=== PATIENT | male | born 1985 | race Caucasian/White ===

== ENCOUNTER 2020-11-15 09:49 | Emergency (ER) | payer BC, SELFPAY ==
[2020-11-15 10:05] VITALS: BP 124/86; PULSE 92; RESP 21; TEMP 37; O2SAT 99; BMI 34.4
--- NOTE | 2020-11-15 10:34 | HMH.EDUTC ---
[facility] [place] Clinical Impression: COVID-19 virus test result unknown, Upper respiratory infection, viral Disposition: Home, Self-Care Condition on Discharge: Good Instructions: DI for Viral Upper Respiratory Infection -- Adult, DI for COVID-19 (Suspected or Confirmed ), Preventing the Spread of Coronavirus Discharge Instructions Additional Instructions: covid swab was sent to lab, call later today for results. self isolate until test results are known to be negative No sign of a bacterial infection. Likely viral. Viruses can take 7-14 days to run their course. Nasal saline and bulb syringe or nose Love to remove nasal drainage to help with nasal congestion. Hard to eat, drink, sleep with nasal congestion so important to keep this cleaned out. Monitor temp. Tylenol or Motrin as needed for pain or fever Encourage fluids, water, Gatorade, Powerade, Pedialyte if infant/toddler/child Warm salt water gargles Warm fluids Sore throat lozenges Sleep elevated Humidifier/vaporizer Follow-up immediately for new or worsening symptoms or no noticeable improvement over the next 48-72 hours. Referrals: Josse Daniel [Primary Care Provider] - Time of Disposition: 10:39 Medical Decision Making - Damion Inquiry Pt receiving controlled substance: No Vital Signs: 11/15/20 10:05 Temperature 98.6 F Temperature Source Oral Pulse Rate [Right Brachial] 92 H Respiratory Rate 21 Blood Pressure [Right Arm] 124/86 Blood Pressure Mean [Right Arm] 98 Blood Pressure Source [Right Arm] Automatic Cuff Blood Pressure Position [Right Arm] Sitting 02 Sat by Pulse Oximetry 99 Oxygen Delivery Method Room Air Orders (Tests/Meds): ORDERS Category Date Time Status Covid-19 Nasal PCR ([facility]) Routine Lab 11/15/20 09:51 Ordered [facility] [place] - General Chief complaint: [facility] Stated complaint: covid exposure test Time Seen by Provider: 11/15/20 10:34 Mode of Arrival: Ambulatory Source of Information: Patient Limitations: No Limitations Description of Symptoms (Recalled from Triage Doc. by RN): COVID TEST D/T EXPOSURE. C/O DRY COUGH, CONGESTION, AND BODY ACHES SINCE THIS MORNING. HEENT Symptoms (Recalled from RN notes): Yes Resp Symptoms (Recalled from RN notes): Yes Skin Symptoms (Recalled from RN notes): No MS Symptoms (Recalled from RN notes): No Functional Status (Recalled from RN notes): WNL - History of Present Illness Provider Complaint: 35 yr old male presents for dry cough, nasal congestion,runny nose, and tiredness that started today. has been exposed to covid - Related Data Previous Rx's Medication Instructions Recorded Amoxicillin/Potassium Clav 1 tab PO Q12H 10 Days #20 tab 05/20/19 [Augmentin 875-125 Tablet] Brompheniramine/Pseudoephed/Dm 5 - 10 ml PO Q4HP PRN 10 Days #240 05/20/19 [Bromfed DM Cough Syrup 5mL] ml Allergies Allergy/AdvReac Type Severity Reaction Status Date / Time No Known Allergies Allergy Verified 01/30/18 10:39 - Worker's Comp Is this a Worker's Comp case?: No [facility] History - Hepatitis A Screen Drug use history?: No High risk sexual behaviors?: No History of sexually transmitted infection?: No Currently employed?: No Childcare worker?: No Do you have indoor plumbing?: Yes Do you have electricity?: Yes Attestation statement:: This patient has been screened for Hepatitis A risk factors. I have reviewed the patient's past medical history: Yes Other Surgeries: Yes: No Previous Surgery Amputation: No Fractures: No - Social History Smoking Status: Never smoker Alcohol Intake: never Substance Use Type: denies use Occupational Status: employed Housing: house Household Members: spouse Family Hx:: No significant family history ROS Obtained: Yes All systems reviewed & no additional complaints - Constitutional Constitutional: Reports system reviewed and no additional complaints, except as docu, Reports body ache, Reports fatigue, Denies fever(s) - Eye
[2020-11-15 10:45] VITALS: BP 124/86; PULSE 92; RESP 21; TEMP 37; O2SAT 99
== END 2020-11-15 10:50 | disposition home or self-care (01) ==
PROVIDERS: Emergency Provider Nurse Practitioner Family; PCP Pediatrics
DX: U07.1 COVID-19 (principal)
CPT/HCPCS: 99202; G0463; U0003

== ENCOUNTER 2020-11-24 18:58 | Emergency (ER) | payer BC, SELFPAY ==
[2020-11-24 19:01] VITALS: BP 151/107; PULSE 92; RESP 19; TEMP 37.1; O2SAT 98; BMI 35.5
--- NOTE | 2020-11-24 19:56 | CT_ITS ---
PROCEDURE INFORMATION: Exam: CTA Chest With Contrast Exam date and time: 11/24/2020 7:56 PM Age: 35 years old Clinical indication: Cough and shortness of breath; Patient HX: SOA, cough, congestion, covid positive; Additional info: SOB, covid + TECHNIQUE: Imaging protocol: Computed tomographic angiography of the chest with contrast. 3D rendering (Not supervised by radiologist): MIP and/or 3D reconstructed images were created by the technologist. Radiation optimization: All CT scans at this facility use at least one of these dose optimization techniques: automated exposure control; mA and/or kV adjustment per patient size (includes targeted exams where dose is matched to clinical indication); or iterative reconstruction. Contrast material: ISO 370; Contrast volume: 70 ml; Contrast route: INTRAVENOUS (IV); COMPARISON: CR XR CHEST 2V 11/24/2020 8:30 PM FINDINGS: Pulmonary arteries: Bolus timing is insufficient for definitive exclusion of pulmonary emboli. Study was performed in the aortic phase of enhancement. Grossly, no large pulmonary emboli are appreciated within the main pulmonary arteries. Proximal through distal segmental/subsegmental branches are not confidently evaluated. Pulmonary arteries are otherwise normal in course and caliber. Aorta: Normal aorta. Lungs: Ground-glass and patchy airspace opacities in the right upper lobe, right lower lobe, left lower lobe, and left upper lobe. Remainder of the lungs are clear. The airways are patent. Pleural spaces: Unremarkable. No pneumothorax. No pleural effusion. Heart: Unremarkable. No cardiomegaly. No pericardial effusion. Lymph nodes: Unremarkable. No enlarged lymph nodes. Bones/joints: Unremarkable. No acute fracture. Soft tissues: Unremarkable. IMPRESSION: 1. Bolus timing is insufficient for definitive exclusion of pulmonary emboli. Study was performed in the aortic phase of enhancement. Grossly, no large pulmonary emboli are appreciated within the main pulmonary arteries. Proximal through distal segmental/subsegmental branches are not confidently evaluated. 2. Mild scattered and bilateral acute airspace disease, most compatible with mild/early COVID-19 pneumonia in this patient with a positive history.
--- NOTE | 2020-11-24 19:56 | XR_ITS ---
PROCEDURE INFORMATION: Exam: XR Chest Exam date and time: 11/24/2020 7:56 PM Age: 35 years old Clinical indication: Cough and shortness of breath; Patient HX: SOA, cough, congestion, covid positve; Additional info: SOB, covid + TECHNIQUE: Imaging protocol: XR of the chest. Views: 2 views. COMPARISON: CR CXR1 CHEST-PORTABLE 08/20/2015 4:32 PM FINDINGS: Airway: Patent Lungs: Subtle ground-glass opacifications suggested at the bilateral lung bases and right upper lung. Pleural spaces: Unremarkable. No pleural effusion. No pneumothorax. Heart/Mediastinum: Unremarkable. No cardiomegaly. Bones/joints: No acute skeletal abnormality or aggressive osseous lesion. IMPRESSION: Concern for early/developing airspace disease in the bilateral lung bases and right upper lung. Developing atypical pneumonia should be entertained in the appropriate clinical setting.
--- NOTE | 2020-11-24 20:12 | HMH.EDSOB ---
ED Disposition Clinical Impression: COVID-19 with pulmonary comorbidity, Obesity (BMI 30-39.9) Disposition: Home, Self-Care Condition on Discharge: Good Instructions: DI for COVID-19 (Suspected or Confirmed ) Additional Instructions: will refer for infusion regen-rivas and call pcp for follow up Referrals: Josse Daniel [Primary Care Provider] - - Critical Care Critical Care Time: No Attestation: On 11/24/20, the high probability of a clinically significant, sudden or life threatening deterioration of the following system(s) required my full and direct attention, intervention and personal management. The time I documented below is in addition to time spent performing reported procedures but includes the following listed in this critical care notation. Medical Decision Making - Medical Records Medical records reviewed: Yes: I reviewed the patient's medical records. - Damion Inquiry Pt receiving controlled substance: No Vital Signs: 11/24/20 19:01 Temperature 98.7 F Temperature Source Oral Pulse Rate [Right] 92 H Respiratory Rate 19 Blood Pressure [Right Arm] 151/107 H Blood Pressure Mean [Right Arm] 121 Blood Pressure Source [Right Arm] Automatic Cuff 02 Sat by Pulse Oximetry 98 Oxygen Delivery Method Room Air - Lab Data Lab results reviewed: Yes: I reviewed the patient's lab results. Lab Results 11/24/20 20:00: WBC 7.0, RBC 5.67, Hgb 16.7, Hct 50.6, MCV 89.2, MCH 29.4, MCHC 32.9, RDW 12.8, Plt Count 329, MPV 6.8 L, Neut % (Auto) 51.2, Lymph % (Auto) 40.0, Toole % (Auto) 5.3, Eos % (Auto) 3.1, Baso % (Auto) 0.5, Neut # (Auto) 3.6, Lymph # (Auto) 2.8, Toole # (Auto) 0.4, Eos # (Auto) 0.2, Baso # (Auto) 0.0, ESR 13 11/24/20 20:00: Sodium 141, Potassium 4.5, Chloride 102, Carbon Dioxide 30, Anion Gap 13.5, BUN 13, Creatinine 0.80, Estimated Creat Clear 215, Estimated GFR 111, Est GFR ( Amer) 135, Glucose 94, Calcium 9.0, Total Bilirubin 0.4, AST 49, ALT 61, Alkaline Phosphatase 84, Troponin I < 0.01, C-Reactive Protein 3.3, Total Protein 7.9, Albumin 4.4, Globulin 3.5 H, Albumin/Globulin Ratio 1.3, Procalcitonin 0.048 Result diagrams: 11/24/20 20:00 11/24/20 20:00 Orders (Tests/Meds): ED MEDICATIONS Generic Name Dose Route Start Last Admin Trade Name Freq PRN Reason Stop Dose Admin Sodium Chloride 1,000 mls @ 999 mls/hr 11/24/20 20:00 11/24/20 21:11 Sod Chlor 0.9% 1000ml Bag IV 11/24/20 21:00 999 mls/hr .Q1H1M CARY Administration Discontinued Medications Generic Name Dose Route Start Last Admin Trade Name Freq PRN Reason Stop Dose Admin Dexamethasone Sodium Phosphate 10 mg 11/24/20 19:56 11/24/20 21:11 Dexamethasone 4mg/Ml 5ml Mdv IV 11/24/20 19:57 10 mg ONCE ONE Administration Iopamidol 70 ml 11/24/20 20:55 11/24/20 20:56 Iopamidol-370 (76%);100ml Bottle IV 11/24/20 20:56 70 ml ONCE ONE Administration Sodium Chloride 50 ml 11/24/20 20:55 11/24/20 20:56 0.9 % Sodium Chloride 50 Ml Vial IV 11/24/20 20:56 50 ml ONCE ONE Administration Sodium Chloride 10 ml 11/24/20 20:55 11/24/20 20:56 Sodium Chloride 0.9% 10ml Syr (Rad Only) IV 11/24/20 20:56 10 ml ONCE ONE Administration ORDERS Category Date Time Status Troponin I Q3H Lab 11/24/20 23:00 Ordered Troponin I Q3H Lab 11/25/20 02:00 Ordered - Radiology Data #1 Image(s): Chest Image Reviewed: Yes I have reviewed radiologist's interpretation Preliminary Findings: Abnormal - CT Data CT Scan: Chest Time Received: 21:[address] Reviewed: Yes: I have viewed the radiologist's interpretation Preliminary Findings: Abnormal (no gross pul emboli) Medical Decision Narrative: has covid-19 with stable exam and labs and xrays at this time will refer for regen-cov infusion and call pcp Resp/SOB HPI - General Chief Complaint: Shortness of Breath/Dyspnea Stated Complaint: Covid+SOB congestion Time Seen by Provider: 11/24/20 20:00 Mode of Arrival: Ambulatory Source
[2020-11-24 20:20] LABS: Basophils % 0.5 % (0.1-2.0); Eosinophils # 0.2 K/mm3 (0.0-0.4); Eosinophils % 3.1 % (0.1-12.0); Hematocrit 50.6 % (42.0-52.0); Hemoglobin 16.7 g/dL (14.1-18.0); Lymphocytes # 2.8 K/mm3 (0.7-4.5); Mean Corpuscular HGB Conc 32.9 g/dL (31.8-35.4); Mean Corpuscular Hemoglobin 29.4 pg (27.0-31.2); Mean Corpuscular Volume 89.2 fl (80-94); Mean Platelet Volume 6.8 fl (7.4-10.4); Monocytes # 0.4 K/mm3 (0.1-1.0); Monocytes % 5.3 % (1.7-9.3); Neutrophils # 3.6 K/mm3 (1.8-7.8); Neutrophils % 51.2 % (37.0-80.0); Platelet Count 329 K/mm3 (142-424); Red Blood Count 5.67 M/mm3 (4.60-6.20); Red Cell Distribution Width 12.8 % (11.5-17.5)
[2020-11-24 20:23] LABS: Alanine Aminotransferase 61 U/L (12-78); Albumin Level 4.4 g/dl (3.5-5.0); Albumin/Globulin Ratio 1.3 (1.1-1.8); Alkaline Phosphatase 84 U/L (38-126); Anion Gap 13.5 mEq/L (5-15); Aspartate Amino Transferase 49 U/L (17-59); Bilirubin,Total 0.4 mg/dl (0.2-1.3); Blood Urea Nitrogen 13 mg/dl (9-20); Carbon Dioxide 30 mmol/L (22.0-30.0); Chloride 102 mmol/L (98-107); Creatinine Clearance Estimated 215 mL/min (50-200); Estimated Glomerular Filt Rate 111 ml/min (>60); GFR (African American) 135 ML/MIN (>60); Globulin 3.5 g/dL (1.3-3.2); Glucose 94 mg/dl (74-100); Potassium 4.5 mmoL/L (3.5-5.1); Sodium 141 mmol/L (136-145); Total Protein,Serum 7.9 g/dl (6.3-8.2)
[2020-11-24 20:28] LABS: C-Reactive Protein 3.3 mg/L (0-4)
[2020-11-24 20:42] LABS: Procalcitonin 0.048 ng/mL (0.0-2.0)
[2020-11-24 20:44] LABS: Troponin I < 0.01 ng/ml (0.00-0.034)
[2020-11-24 20:55] LABS: Erythrocyte Sedimentation Rate 13 mm/hr (0-15)
[2020-11-24 21:00] VITALS: BP 130/85; PULSE 86; O2SAT 95
[2020-11-24 21:30] VITALS: BP 118/81; PULSE 85; O2SAT 95
[2020-11-24 21:54] VITALS: BP 138/82; PULSE 74; RESP 18; TEMP 36.8; O2SAT 99
== END 2020-11-24 22:02 | disposition home or self-care (01) ==
PROVIDERS: Emergency Provider Emergency Medicine; PCP Pediatrics
DX: U07.1 COVID-19 (principal); R53.1 Weakness; R06.02 Shortness of breath
CPT/HCPCS: 71046; 71275; 80053; 84145; 84484; 85025; 85651; 86140; 93005; 96365; 96375; 99282; Q9967

== ENCOUNTER 2021-04-08 19:17 | Emergency (ER) | payer BC, SELFPAY ==
[2021-04-08 20:00] VITALS: BP 162/98; PULSE 124; RESP 20; TEMP 38.4; O2SAT 98; BMI 37.3
--- NOTE | 2021-04-08 20:17 | HMH.EDUTC ---
[facility] [place]: Viral syndrome Fever Qualifiers: Fever type: unspecified Qualified Code(s): R50.9 - Fever, unspecified Disposition: Home, Self-Care Condition on Discharge: Good Instructions: DI for Fever (Symptom) -- Adult, DI for COVID-19 (Suspected or Confirmed ), Preventing the Spread of Coronavirus Discharge Instructions Additional Instructions: *Monitor Temp, Over the counter Motrin or Tylenol as directed/as needed Tylenol every 4 hours and Motrin every 6 hours (as long as your family doctor has told you that you can take it) for fever or pain. and straight to ER if unable to lower temp less than 101.0 after medication given *Warm salt water gargles may help to soothe the throat *Throat Lozenges *Warm fluids like tea with honey may help to soothe the throat *Sleep elevated *Humidifier/Vaporizer Follow up IMMEDIATELY for new or worsening symptoms or no Noticeable improvement over the next 48-72 hours. 911 for difficulty breathing or swallowing You were tested for today for COVID19 your test result should be back in the next 48-72 hours, you may check your results on the [facility] My health portal If you are positive someone from the Hospital will be calling you Make sure to drink plenty of water and gatoraid and take vitamin C, D and zinc Referrals: Josse Daniel [Primary Care Provider] - Forms: Work/School Release Medical Decision Making - Damion Inquiry Pt receiving controlled substance: No Damion was queried for this patient: No Vital Signs: 04/08/21 20:00 04/08/21 20:18 Temperature 101.2 F H 101.2 F H Temperature Source Oral Pulse Rate 124 H Pulse Rate [Right Brachial] 124 H Respiratory Rate 20 20 Blood Pressure 162/98 H Blood Pressure [Right Arm] 162/98 H Blood Pressure Mean [Right Arm] 119 Blood Pressure Source [Right Arm] Automatic Cuff Blood Pressure Position [Right Arm] Sitting 02 Sat by Pulse Oximetry 98 Oxygen Delivery Method Room Air - Lab Data Lab results reviewed: Yes: I reviewed the patient's lab results. Orders (Tests/Meds): ED MEDICATIONS Discontinued Medications Generic Name Dose Route Start Last Admin Trade Name Freq PRN Reason Stop Dose Admin Ibuprofen 800 mg 04/08/21 20:15 04/08/21 20:15 Ibuprofen 400 Mg Tablet PO 04/08/21 20:16 800 mg ONCE ONE Administration ORDERS Category Date Time Status Covid-19 Nasal PCR ([facility]) Routine Lab 04/08/21 20:00 [place] [facility] [place] General Stated complaint: FEVER,CHILLS,COUGH.BODY ACHES Time Seen by Provider: 04/08/21 20:17 Mode of Arrival: Ambulatory Source of Information: Patient Limitations: No Limitations Description of Symptoms (Recalled from Triage Doc. by RN): PATIENT C/O COUGH, FEVER, WEAKNESS, CONGESTION, RUNNY NOSE AND BODY ACHES SINCE THIS MORNING HEENT Symptoms (Recalled from RN notes): Yes Resp Symptoms (Recalled from RN notes): Yes Skin Symptoms (Recalled from RN notes): No MS Symptoms (Recalled from RN notes): No Functional Status (Recalled from RN notes): WNL - History of Present Illness Provider Complaint: Patient states that he woke up this morning and it hit him suddenly State that he started feeling feverish with chills, body aches, nasal congestion, fatigue and cough State that as the day went on he continued to feel worse so this evening he was worried he may have flu or COVID so he came in to get tested - Related Data Home Medications Medication Instructions Recorded Confirmed benazepril 10 mg tablet 20 mg PO DAILY tab 02/22/21 04/08/21 Allergies Allergy/AdvReac Type Severity Reaction Status Date / Time No Known Allergies Allergy Verified 02/22/21 18:29 - Worker's Comp Is this a Worker's Comp case?: No [facility] History - Hepatitis A Screen Drug use history?: No High risk sexual behaviors?: No History of sexually transmitted infection?: No Currently employed?: No Childcare worker?: No Do you have indoor plumbing?: Yes Do
[2021-04-08 20:18] VITALS: BP 162/98; PULSE 100; RESP 20; TEMP 37.3; O2SAT 98
[2021-04-08 20:37] LABS: UTC Influenza A Antigen Negative (Negative); UTC Influenza B Antigen Negative (Negative)
== END 2021-04-08 20:45 | disposition home or self-care (01) ==
PROVIDERS: Emergency Provider Nurse Practitioner; PCP Pediatrics
DX: U07.1 COVID-19 (principal); B34.9 Viral infection, unspecified
CPT/HCPCS: 87804; 99202; C9803; G0463; U0003; U0005

== ENCOUNTER 2021-05-24 18:44 | Emergency (ER) | payer BC, SELFPAY ==
[2021-05-24 19:55] VITALS: BP 141/87; PULSE 125; RESP 21; TEMP 37.7; O2SAT 100; BMI 37.3
--- NOTE | 2021-05-24 20:03 | HMH.EDUTC ---
[facility] [place]ression: Viral syndrome Bilateral otitis media Qualifiers: Otitis media type: suppurative Chronicity: acute Recurrence: non-recurrent Spontaneous tympanic membrane rupture: without spontaneous rupture Qualified Code(s): H66.003 - Acute suppurative otitis media without spontaneous rupture of ear drum, bilateral Pharyngitis Qualifiers: Pharyngitis/tonsillitis etiology: unspecified etiology Qualified Code(s): J02.9 - Acute pharyngitis, unspecified Disposition: Home, Self-Care Condition on Discharge: Good Instructions: DI for Strep Throat, Preventing the Spread of Coronavirus Discharge Instructions Additional Instructions: Drink plenty of fluids. Take tylenol or ibuprofen for pain or fever. Take the medications as directed. Follow up with your regular doctor. GO TO THE ER FOR ANY WORSENING SYMPTOMS Quarantine until you know the results of your covid-19 test. Notify your school or workplace of your results and follow their instructions regarding return to work/school. Prescriptions: Benzonatate [Benzonatate 100mg cap] 100 mg PO TIDP PRN #30 cap PRN Reason: Cough Transmission Status: Received by [facility] predniSONE [Deltasone 10mg tablet] 10 mg PO BID 3 Days #6 tab Transmission Status: Received by [facility] Azithromycin [Z-Zenon 250mg Tab*] 250 mg PO UD DOSE PK #6 tab Transmission Status: Received by [facility] Referrals: Josse Daniel [Primary Care Provider] - Forms: Work/School Release Time of Disposition: 20:56 Medical Decision Making - Medical Records Medical records reviewed: No: I reviewed the patient's medical records. - Damion Inquiry Pt receiving controlled substance: No Vital Signs: 05/24/21 19:55 05/24/21 20:46 Temperature 99.8 F H 99.8 F H Temperature Source Oral Pulse Rate 125 H Pulse Rate [Right Brachial] 125 H Respiratory Rate 21 21 Blood Pressure 141/87 H Blood Pressure [Right Arm] 141/87 H Blood Pressure Mean [Right Arm] 105 Blood Pressure Source [Right Arm] Automatic Cuff Blood Pressure Position [Right Arm] Sitting 02 Sat by Pulse Oximetry 100 Oxygen Delivery Method Room Air - Lab Data Lab results reviewed: Yes: I reviewed the patient's lab results. Lab Results 05/24/21 19:58: Chlamy pneumoniae PCR Not detected, Adenovirus (PCR) Not detected, B. pertussis DNA (PCR) Not detected, Coronavirus OC43 (PCR) Not detected, Coronavirus HKU1 (PCR) Not detected, Coronavirus 229E (PCR) Not detected, SARS-CoV-2 (PCR) Not detected, Coronavirus NL63 (PCR) Not detected, Human Metapneumovir PCR Not detected, Influenza A (H1) PCR Not detected, Influ A (H1N1/09) PCR Not detected, Influenza A (H3) PCR Not detected, Influenza Type A (PCR) Not detected, Influenza Type B (PCR) Not detected, M. pneumoniae (PCR) Not detected, Parainfluenza 1 (PCR) Not detected, Parainfluenza 2 (PCR) Not detected, Parainfluenza 3 (PCR) Not detected, Parainfluenza 4 (PCR) Not detected, RSV (PCR) Not detected, Entero/Rhino (PCR) Not detected 05/24/21 20:03: Influenza Type A Ag Negative, Influenza Type B Ag Negative 05/24/21 20:03: Strep Scn Rapid Clinic Negative Orders (Tests/Meds): ORDERS Category Date Time Status Strep Screen Confirmation Stat Micro 05/24/21 20:03 [place] [facility] [place] - General Stated complaint: sore throat, cough, H/A, congestion Time Seen by Provider: 05/24/21 20:03 - History of Present Illness Provider Complaint: He states that he has felt bad since yesterday. He has a sore throat, chills, fever, and body aches. - Related Data Home Medications Medication Instructions Recorded Confirmed benazepril 10 mg tablet 20 mg PO DAILY tab 02/22/21 05/24/21 Atorvastatin Calcium [Lipitor 20mg 20 mg PO HS 05/24/21 05/24/21 Tab] Previous Rx's Medication Instructions Recorded Azithromycin [Z-Zenon 250mg Tab*] 250 mg PO UD DOSE PK #6 tab 05/24/21 Benzonatate [Steven
[2021-05-24 20:14] LABS: UTC Influenza A Antigen Negative (Negative); UTC Influenza B Antigen Negative (Negative); UTC Strep Screen (Rapid) Negative (Negative)
[2021-05-24 20:21] LABS: Adenovirus,PCR Not Detected (NotDetected); Bordetella Pertussis Not Detected (NotDetected); Chlamydophila Pneumoniae, PCR Not Detected (NotDetected); Coronavirus 19, PCR Not Detected (NotDetected); Coronavirus 229E Not Detected (NotDetected); Coronavirus NL63 Not Detected (NotDetected); Coronavirus OC43 Not Detected (NotDetected); Coronovirus HKU1,PCR Not Detected (NotDetected); Human Metapneumovirus Not Detected (NotDetected); Influenza A, PCR Not Detected (NotDetected); Influenza AH1, 2009 Not Detected (NotDetected); Influenza AH1, PCR Not Detected (NotDetected); Influenza AH3,PCR Not Detected (NotDetected); Influenza B, PCR Not Detected (NotDetected); Mycoplasma Pneumoniae, PCR Not Detected (NotDetected); Parainfluenza 1, PCR Not Detected (NotDetected); Parainfluenza 2, PCR Not Detected (NotDetected); Parainfluenza 3, PCR Not Detected (NotDetected); Parainfluenza 4, PCR Not Detected (NotDetected); Respiratory Syncytial Virus Not Detected (NotDetected); Rhinovirus/Enterovirus Not Detected (NotDetected)
[2021-05-24 20:46] VITALS: BP 141/87; PULSE 125; RESP 21; TEMP 37.7; O2SAT 100
== END 2021-05-24 20:59 | disposition home or self-care (01) ==
PROVIDERS: Emergency Provider Nurse Practitioner Family; PCP Pediatrics
DX: H66.003 Acute suppurative otitis media without spontaneous rupture of ear drum, bilateral (principal); B34.9 Viral infection, unspecified; I10 Essential (primary) hypertension
CPT/HCPCS: 87581; 87632; 87798; 87804; 87880; 99213; C9803; G0463; U0003; U0005